=== PATIENT | male | born 1980 | race Caucasian/White ===

== ENCOUNTER → 2019-09-02 15:35 | Outpatient (CLI) | payer BC, SELFPAY ==
--- NOTE | 2019-09-09 13:45 | PM.PFT.1 ---
Pulmonary Function Test Referral & Results Date Patient Seen: 09/02/19 Requesting provider: Edelmira Richardson Results: The spirometry demonstrates an FVC of 5.18 L which is 99% of predicted. The FEV1 was measured at 3.19 L which is 76% of predicted. The FEV1/FVC ratio was 62 which is 76% of predicted. Following the administration of bronchodilator there was 11% improvement in FEV1 and a 34% improvement in FEF 25-75%. Lung volumes show an SVC of 4.60 L which is 91% of predicted. The diffusing capacity was measured at 39.66 which is 127 % of predicted. The maximum voluntary ventilation was normal Interpretation: This study demonstrates mild reduction in FEV1 suggesting a mild obstructive lung disease with some evidence of benefit following bronchodilator administration as above particularly small airway flow based on FEF 25-75% Normal lung volumes and higher than expected diffusing capacity. Altogether this is consistent with a diagnosis of mild asthma
== END ==
PROVIDERS: PCP Hospitalist; Visit Provider Hospitalist
DX: I45.10 Unspecified right bundle-branch block (principal); J98.8 Other specified respiratory disorders
CPT/HCPCS: 94060; 94726; 94729

== ENCOUNTER → 2019-11-25 14:50 | Outpatient (CLI) | payer BC, SELFPAY ==
[2019-11-25 15:14] LABS: Semen Sperm Prescence Post-Vas Absent (ABSENT)
== END ==
PROVIDERS: PCP Internal Medicine; Referring Provider Specialist; Visit Provider Specialist
DX: Z30.2 Encounter for sterilization (principal)
CPT/HCPCS: 89321

== ENCOUNTER → 2020-11-20 09:07 | Outpatient (CLI) | payer BC, SELFPAY ==
--- NOTE | 2020-11-20 | DI.RAD.S_ITS ---
PROCEDURE: XR CHEST 2V INDICATIONS: COUGH TECHNIQUE: 2 views of the chest were acquired. COMPARISON: [facility], , CHEST 2 VIEW, 08/29/2015, 10:41. FINDINGS: Surgical changes and devices: None. Lungs and pleura: Lungs are clear. No pleural effusions or pneumothorax. Mediastinum: Mediastinal contours are normal. Heart size is normal. Bones and chest wall: No suspicious bony abnormalities. Soft tissues appear unremarkable. IMPRESSION: No acute disease. Dictated by: Pedro Melgar M.D. on 11/20/2020 at 9:58 Approved by: Pedro Melgar M.D. on 11/20/2020 at 10:01
== END ==
PROVIDERS: PCP Family Medicine; Referring Provider Family Medicine; Visit Provider Family Medicine
DX: R05 Cough (principal)
CPT/HCPCS: 71046

== ENCOUNTER → 2021-12-23 10:48 | Outpatient (CLI) | payer BC, SELFPAY ==
--- NOTE | 2021-12-23 | DI.RAD.S_ITS ---
PROCEDURE: XR LUMBAR SPINE 2-3V INDICATIONS: Lumbago with sciatica, right side TECHNIQUE: 3 views of the lumbar spine were acquired. COMPARISON: None. FINDINGS: Bones: 5 [id number] vertebrae are present. There is normal bony alignment. No vertebral body compression fractures. No suspicious bony lesions. Soft tissues: Overlying bowel gas pattern is normal. No suspicious soft tissue calcifications. IMPRESSION: Normal lumbar spine radiographs Approved by: Arnulfo Camarillo M.D. on 12/23/2021 at 12:51
== END ==
PROVIDERS: PCP Family Medicine; Referring Provider Family Medicine; Visit Provider Family Medicine
DX: M54.41 Lumbago with sciatica, right side (principal)
CPT/HCPCS: 72100

== ENCOUNTER → 2022-01-13 18:38 | Outpatient (CLI) | payer BC, SELFPAY ==
--- NOTE | 2022-01-13 18:42 | DI.MRI.S_ITS ---
PROCEDURE: MR LUMBAR SPINE WO CON INDICATIONS: RADICULOPATHY,LUMBAR REGION TECHNIQUE: Noncontrast sagittal T1 spin echo and T2 fast echo, sagittal STIR, and T2 fast spin echo through the lumbar spine. In cases with scoliosis, additional coronal T2 fast spin echo may be performed. COMPARISON: None. FINDINGS: Image quality: Excellent. Alignment and Curvature: Normal lumbar vertebral body height and alignment. Bone Marrow: No suspicious focal marrow signal abnormality or bone marrow edema. Spinal Cord: Normal size and position of the conus. Regional Soft Tissues: Prevertebral and paraspinous soft tissues are within normal limits. T12-L1: Normal appearance. L1-L2: Normal appearance. L2-L3: Normal appearance. L3-L4: Normal appearance. L4-L5: Diffuse disc bulge flattens the ventral thecal sac. No mass effect upon the traversing L5 nerve roots. Foraminal components of the disc bulge and facet hypertrophy combine to produce mild bilateral neural foraminal stenosis. Small facet effusions present. L5-S1: Disc desiccation and disc height loss with the annular fissure of the disc posteriorly. Diffuse disc bulge and a superimposed extrusion combine to flatten and indent the ventral thecal sac. Extruded disc material is more prominent in the left paracentral and subarticular zone with displacement of the descending left S1 nerve roots. Foraminal components of the disc bulge and facet hypertrophy combine to produce mild bilateral neural foraminal stenosis. IMPRESSION: Degenerative changes at L4-L5 and to a greater degree at L5-S1. Dictated by: Jacob Abad M.D. on 01/14/2022 at 10:16 Approved by: Jacob Abad M.D. on 01/14/2022 at 10:19
== END ==
PROVIDERS: PCP Family Medicine; Referring Provider Family Medicine; Visit Provider Family Medicine
DX: M47.26 Other spondylosis with radiculopathy, lumbar region; M47.27 Other spondylosis with radiculopathy, lumbosacral region
CPT/HCPCS: 72148

== ENCOUNTER → 2022-09-17 11:58 | Outpatient (ROUT) | payer BC, SELFPAY ==
[2022-09-17 12:44] LABS: Influenza A - CEPHEID Flu A POSITIVE (NEGATIVE); Influenza B - CEPHEID Flu B NEGATIVE (NEGATIVE)
== END ==
PROVIDERS: PCP Family Medicine; Visit Provider Family Medicine
DX: R05.1 Acute cough (principal)
CPT/HCPCS: 87502

== ENCOUNTER → 2025-03-28 13:05 | Outpatient (CLI) | payer BC, SELFPAY ==
--- NOTE | 2025-03-28 13:07 | DI.MRI.S_ITS ---
PROCEDURE: MR SHOULDER RT WO CON INDICATIONS: RT SHOULDER INJURY TECHNIQUE: Noncontrast oblique coronal T2 fast spin echo with fat saturation, oblique sagittal T1 spin echo and T2 fast spin echo with fat saturation, axial T1 spin echo and T2 fast spin echo with fat saturation through the shoulder. COMPARISON: No prior MRI right shoulder for comparison. FINDINGS: Image quality: Excellent. Some images are limited by patient motion artifacts, low [id number]. Rotator cuff: Mild increased T2-weighted signal and thinning of the distal supraspinatus tendon anteriorly and the distal subscapularis tendon suspicious for tendinopathy, partial tear predominantly of the superior surface. Type 3 inferiorly hooked acromion with decreased subacromial space measuring approximately 5 mm at its narrowest may be an indication of impingement. Mild subacromial/subdeltoid bursal fluid. No significant myotendinous retraction or muscular fatty atrophy. The infraspinatus and teres minor within normal limits. Labrum: Increased T2 weighted signal, irregularity of the superior labrum suspicious for SLAP tear with a paralabral cyst anteriorly. Some of the findings may be related to anatomical variant with Krishna complex, cord-like middle glenohumeral ligament which may be associated with absence of the anterior labrum. If indicated MRI with intra- articular contrast could be performed. Bones and bursae: Moderate degenerative changes of the acromioclavicular joint with joint space narrowing, osteophytes and subchondral edema. [id number] degenerative changes of the glenohumeral joint with diffuse cartilaginous thinning. No bone marrow contusions or fractures. Capsule and soft tissues: Mild thinning of the biceps anchor without significant abnormal signal and without retraction. The long head of the biceps tendon demonstrates normal location and morphology. IMPRESSION: Tendinopathy, partial tear distal supraspinatus and subscapularis as discussed above with possible impingement and type 3 inferiorly hooked acromion. Suspicion of SLAP tear with associated paralabral cyst however possible variant Annabella complex as discussed above may have similar appearance. Correlation with arthroscopic evaluation or MRI with intra-articular gadolinium contrast could be considered. Degenerative changes of the acromioclavicular and glenohumeral joints. Dictated by: Brian Osborne M.D. on 03/30/2025 at 9:25 Approved by: Brian Osborne M.D. on 03/30/2025 at 10:25
== END ==
PROVIDERS: PCP Family Medicine; Referring Provider Family Medicine; Visit Provider Family Medicine
DX: S49.91XA Unspecified injury of right shoulder and upper arm, initial encounter (principal); M75.111 Incomplete rotator cuff tear or rupture of right shoulder, not specified as traumatic; X58.XXXA Exposure to other specified factors, initial encounter
CPT/HCPCS: 73221